=== PATIENT | female | born 1970 | race Caucasian/White ===

== ENCOUNTER → 2016-12-04 | Outpatient (CLI) | payer BC | END | disposition home or self-care (01) | LOC: MAMMO 07:19 | DX: Z12.31 Encounter for screening mammogram for malignant neoplasm of breast (principal) ==

== ENCOUNTER → 2016-12-24 | Outpatient (CLI) | payer BC | END | disposition home or self-care (01) | LOC: MAMMO 12-17 13:30 → US 12-17 14:00 → MAMMO 12:51 | DX: N60.02 Solitary cyst of left breast (principal) ==

== ENCOUNTER → 2018-02-04 | Outpatient (CLI) | payer BC | END | disposition home or self-care (01) | LOC: MAMMO 07:08 | DX: Z12.31 Encounter for screening mammogram for malignant neoplasm of breast (principal); R92.8 Other abnormal and inconclusive findings on diagnostic imaging of breast ==

== ENCOUNTER → 2019-10-04 | Outpatient (CLI) | payer BC | END | disposition home or self-care (01) | LOC: COVID19 10-01 00:56 | DX: R50.9 Fever, unspecified (principal); R11.0 Nausea; Z20.828 Contact with and (suspected) exposure to other viral communicable diseases ==

== ENCOUNTER → 2020-09-03 | Outpatient (CLI) | payer BC | END | disposition home or self-care (01) | LOC: RAD 08:42 | PROVIDERS: ATTEND Chiropractor | DX: M43.12 Spondylolisthesis, cervical region (principal); M50.323 Other cervical disc degeneration at C6-C7 level; M48.02 Spinal stenosis, cervical region ==

== ENCOUNTER 2020-09-12 18:03 | Emergency (ER) | payer BC ==
[~2020-09-12] VITALS: Ht 165.1 cm; Wt 72.6 kg
[2020-09-12] MEDS ORDERED: MEDROL DOSEPAK4 MG PO (20:46)
[2020-09-12] MEDS ORDERED: CYCLOBENZAPRINE10 MG PO (20:46)
== END 2020-09-12 21:00 | disposition home or self-care (01) ==
LOC: ED 18:03
DX: M48.02 Spinal stenosis, cervical region (principal); M54.12 Radiculopathy, cervical region; M50.20 Other cervical disc displacement, unspecified cervical region; Z88.8 Allergy status to other drugs, medicaments and biological substances

== ENCOUNTER → 2020-12-27 | Outpatient (CLI) | payer BC ==
[~2020-12-27] MED LIST: CYCLOBENZAPRINE10 MG PO; MEDROL DOSEPAK4 MG PO
== END | disposition home or self-care (01) ==
LOC: COVID19 18:06
PROVIDERS: ATTEND Internal Medicine
DX: Z11.52 Encounter for screening for COVID-19 (principal)

== ENCOUNTER → 2024-09-16 | Outpatient (CLI) | payer BC ==
[2024-09-16 14:58] LABS: BASO # 0.1 10*3/uL (0.0-0.1); BASO % 1.1 % (0.0-1.0); EOS # 0.2 10*3/uL (0.0-0.4); EOS % 3.2 % (1.0-4.0); MEAN CELL VOLUME 95.5 fl (81.0-99.0); MEAN CORPUSCULAR HGB 31.6 pg (27.0-31.0); MEAN PLATELET VOLUME 10.3 fl (9.6-12.3); MONO # 0.6 10*3/uL (0.1-1.0); MONO % 8.5 % (3.0-9.0); NEUT # 3.4 10*3/uL (2.3-7.9); NEUT % 50.7 % (47.0-73.0); NUCLEATED RED BLOOD CELL 0.0 % (0.0-0.0); NUCLEATED RED BLOOD CELL 0.0 10*3/uL (0.0-0.0); PLATELET COUNT AUTOMATED 297 10*3/uL (130-400); RED CELL DISTRI WIDTH 12.7 % (0-14.5)
[2024-09-16 15:26] LABS: BUN 11 mg/dl (9-23); LDL CHOLESTEROL 190 mg/dL (9-159); SGPT/ALT 21 U/L (5-49)
[2024-09-16 15:31] LABS: VITAMIN D, 25-HYDROXY 17.3 ng/mL (30-100)
== END | disposition home or self-care (01) ==
LOC: LAB 08:55
PROVIDERS: ATTEND Nurse Practitioner Family
DX: R03.0 Elevated blood-pressure reading, without diagnosis of hypertension (principal); R53.82 Chronic fatigue, unspecified; Z13.29 Encounter for screening for other suspected endocrine disorder; Z13.220 Encounter for screening for lipoid disorders; Z76.89 Persons encountering health services in other specified circumstances

== ENCOUNTER → 2024-12-03 | Outpatient (CLI) | payer BC | END | disposition home or self-care (01) | LOC: CT 10-27 11:00 | PROVIDERS: ATTEND Nurse Practitioner Family | DX: Z12.2 Encounter for screening for malignant neoplasm of respiratory organs (principal); J43.2 Centrilobular emphysema; I70.0 Atherosclerosis of aorta; F17.210 Nicotine dependence, cigarettes, uncomplicated ==